=== PATIENT | male | born 1965 | race Caucasian/White ===

== ENCOUNTER 2017-07-10 08:26 | Emergency (ER) | payer BC ==
[~2017-07-10] VITALS: Ht 182.9 cm; Wt 119.0 kg
[~2017-07-10 08:26] MED LIST: AMOX500T PO; IBUP1TAB7 PO; LORT5TAB PO; TRAM50 PO; Z.0.NO CURRENT MEDS
[2017-07-10 08:29] VITALS: BP 171/90; PULSE 65; RESP 16; TEMP 97.6; O2SAT 98
[2017-07-10] MEDS ORDERED: IBUP200C PO (09:15)
[2017-07-10 09:29] LABS: AUTOMATED NEUTROPHIL # 3.4 TH/MM3 (1.8-7.7); BASOPHIL # 0.1 TH/MM3 (0-0.2); BASOPHIL % 1.2 % (0.0-2.0); EOSINOPHIL # 0.1 TH/MM3 (0-0.4); HEMATOCRIT 39.4 % (39.0-51.0); HEMOGLOBIN 13.3 GM/DL (13.0-17.0); LYMPHOCYTE # 1.6 TH/MM3 (1.0-4.8); MEAN CELL VOLUME 83.6 FL (80.0-100.0); MEAN CORPUSCULAR HEMOGLOBIN 28.2 PG (27.0-34.0); MEAN CORPUSCULAR HGB CONC 33.7 % (32.0-36.0); MEAN PLATELET VOLUME 7.4 FL (7.0-11.0); MONO % 6.9 % (0.0-8.0); MONOCYTE # 0.4 TH/MM3 (0-0.9); NEUT % 61.9 % (16.0-70.0); PLATELET COUNT 198 TH/MM3 (150-450); RED BLOOD COUNT 4.71 MIL/MM3 (4.50-5.90); RED CELL DISTRIBUTION WIDTH 14.1 % (11.6-17.2); WHITE BLOOD COUNT 5.6 TH/MM3 (4.0-11.0)
[2017-07-10 09:54] LABS: ALBUMIN 3.4 GM/DL (3.4-5.0); BICARBONATE 27.2 MEQ/L (21.0-32.0); CALCIUM 8.5 MG/DL (8.5-10.1); GLUCOSE,RANDOM 94 MG/DL (74-106)
[2017-07-10 09:58] LABS: ALT (GPT) 22 U/L (12-78); GLOMERULAR FILTRATION RATE 88 ML/MIN (>89)
[2017-07-10 09:59] LABS: TOTAL BILIRUBIN ADULT 0.6 MG/DL (0.2-1.0); TOTAL PROTEIN 7.3 GM/DL (6.4-8.2)
[2017-07-10 10:00] LABS: ALKALINE PHOSPHATASE 74 U/L (45-117)
[2017-07-10 10:02] LABS: CHLORIDE 111 MEQ/L (98-107); SODIUM (NA) 144 MEQ/L (136-145)
[2017-07-10 10:06] LABS: AST (GOT) 20 U/L (15-37)
[2017-07-10 10:09] LABS: BLOOD UREA NITROGEN 16 MG/DL (7-18)
[2017-07-10 10:16] LABS: BILIRUBIN, URINE NEG (NEG); BLOOD, URINE TRACE (NEG); GLUCOSE,URINE NEG (NEG); KETONE, URINE NEG (NEG); NITRITE,URINE NEG (NEG); URINE COLOR YELLOW (YELLW/STRAW); URINE LEUKOCYTE ESTERASE NEG (NEG)
[2017-07-10 10:30] LABS: RBC, URINE 0-3 /hpf (0-3); SQUAMOUS EPITHELIAL CELL URINE 0-5 /hpf (0-5); WBC, URINE 0-2 /hpf (0-5)
[2017-07-10 10:39] VITALS: BP 131/87; PULSE 65; RESP 18; O2SAT 98
[2017-07-10] MEDS ORDERED: HYDR25TA5 PO (10:49)
[2017-07-10] MEDS ORDERED: POTA1TAB77 PO (10:49)
--- NOTE | 2017-07-10 10:49 | PD ---
HPI Chief Complaint: Edema Time Seen by Provider: 09:07 Travel History International Travel<30 days: No Contact w/Intl Traveler<30days: No Traveled to known affect area: No History of Present Illness HPI This 52-year-old male is complaining of bilateral foot swelling. He has had mild trouble like this before. Is more prominent than usual right now. He has no history of kidney disease or liver disease. He has no history of heart disease. He has not been short of breath. He is on no medication. He has not had fever or chills PFSH Past Medical History Medical History: Denies Significant Hx Diminished Hearing: No Influenza Vaccination: No ?: Not Past Surgical History Surgical History: No Previous Surgery Social History Alcohol Use: No Tobacco Use: No Substance Use: No Allergies-Medications (Allergen,Severity, Reaction): Coded Allergies: No Known Allergies (Verified , 05/01/16) Reported Meds & Prescriptions Reported Meds & Active Scripts Active Reported Ibuprofen 200 Mg Cap 200 Mg PO Q6H PRN Review of Systems General / Constitutional: No: Fever, Chills Eyes: No: Diploplia, Blurred Vision HENT: No: Headaches, Vertigo Cardiovascular: Positive: Edema, No: Palpitations Respiratory: No: Cough, Shortness of Breath Gastrointestinal: No: Nausea, Vomiting Genitourinary: No: Urgency, Frequency Musculoskeletal: No: Myalgias, Pain Skin: No Rash Endocrine: No: Heat Intolerance, Cold Intolerance Hematologic/Lymphatic: No: Easy Bruising Physical Exam Narrative GENERAL: Well-developed male SKIN: Focused skin assessment warm/dry. HEAD: Atraumatic. Normocephalic. EYES: Pupils equal and round. No scleral icterus. No injection or drainage. ENT: No nasal bleeding or discharge. Mucous membranes pink and moist. NECK: Trachea midline. No JVD. CARDIOVASCULAR: Regular rate and rhythm. No murmur appreciated. RESPIRATORY: No accessory muscle use. Clear to auscultation. Breath sounds equal bilaterally. GASTROINTESTINAL: Abdomen soft, non-tender, nondistended. Hepatic and splenic margins not palpable. MUSCULOSKELETAL: No obvious deformities. No clubbing. No cyanosis. Bilateral pedal edema. No calf tenderness NEUROLOGICAL: Awake and alert. No obvious cranial nerve deficits. Motor grossly within normal limits. Normal speech. PSYCHIATRIC: Appropriate mood and affect; insight and judgment normal. Data Data Last Documented VS Vital Signs Date Time Temp Pulse Resp B/P (MAP) Pulse Ox O2 Delivery O2 Flow Rate FiO2 07/10/17 10:39 65 18 131/87 (102) 98 07/10/17 08:29 97.6 Room Air Orders Orders Complete Blood Count With Diff (07/10/17 09:15) Comprehensive Metabolic Panel (07/10/17 09:15) B-Type Natriuretic Peptide (07/10/17 09:15) Urinalysis - C+S If Indicated (07/10/17 09:15) Labs Laboratory Tests Test 07/10/17 09:20 07/10/17 10:00 White Blood Count 5.6 TH/MM3 Red Blood Count 4.71 MIL/MM3 Hemoglobin 13.3 GM/DL Hematocrit 39.4 % Mean Corpuscular Volume 83.6 FL Mean Corpuscular Hemoglobin 28.2 PG Mean Corpuscular Hemoglobin Concent 33.7 % Red Cell Distribution Width 14.1 % Platelet Count 198 TH/MM3 Mean Platelet Volume 7.4 FL Neutrophils (%) (Auto) 61.9 % Lymphocytes (%) (Auto) 28.0 % Monocytes (%) (Auto) 6.9 % Eosinophils (%) (Auto) 2.0 % Basophils (%) (Auto) 1.2 % Neutrophils # (Auto) 3.4 TH/MM3 Lymphocytes # (Auto) 1.6 TH/MM3 Monocytes # (Auto) 0.4 TH/MM3 Eosinophils # (Auto) 0.1 TH/MM3 Basophils # (Auto) 0.1 TH/MM3 CBC Comment DIFF FINAL Differential Comment Blood Urea Nitrogen 16 MG/DL Creatinine 0.90 MG/DL Random Glucose 94 MG/DL Total Protein 7.3 GM/DL Albumin 3.4 GM/DL Calcium Level 8.5 MG/DL Alkaline Phosphatase 74 U/L Aspartate Amino Transf (AST/SGOT) 20 U/L Alanine Aminotransferase (ALT/SGPT) 22 U/L Total Bilirubin 0.6 MG/DL Sodium Level 144 MEQ/L Potassium Level 4.0 MEQ/L Chloride Level 111 MEQ/L Carbon Dioxide Level 27.2 MEQ/L Anion Gap 6 MEQ/L Estimat Glomerular Filtration Rate 88 ML/MIN B-Type Natriuretic Peptide 29 PG/ML Urine Collection Type CLEAN CATCH Urine Color YELLOW Urine Turbidity CLEAR Urine pH 6.0 Urine Specific [place] 1.025 Urine Protein NEG mg/dL Urine Glucose (UA) NEG mg/dL Urine Ketones NEG mg/dL Urine Occult Blood TRACE Urine Nitrite NEG Urine Bilirubin NEG Urine Urobilinogen 0.2 MG/DL Urine Leukocyte Esterase NEG Urine RBC 0-3 /hpf Urine WBC 0-2 /hpf Urine Squamous Epithelial Cells 0-5 /hpf Microscopic Urinalysis Comment CULT NOT INDICATED Urine Collection Time 10:00 [facility] Medical Decision Making Medical Screen Exam Complete: Yes Emergency Medical Condition: Yes Medical Record Reviewed: Yes Differential Diagnosis Differential includes congestive heart failure, nephrotic syndrome, cirrhosis, Narrative Course BNP is normal. Kidney function is normal. Albumin slightly low at 3.4. Patient did have elevated blood pressure on arrival. I am going to put him on hydrochlorothiazide 25 daily Diagnosis Primary Impression: Peripheral edema Scripts Potassium Chloride ER (K-Tab) 8 Meq Tab 8 MEQ PO DAILY for Electrolyte Replacement, #30 TAB 0 Refills Prov: West Simpson MD 07/10/17 Hydrochlorothiazide (Hydrochlorothiazide) 25 Mg Tab 25 MG PO DAILY, #30 TAB 0 Refills Prov: West Simpson MD 07/10/17 Disposition: 01 DISCHARGE HOME Condition: Stable West Simpson MD Jul 10, 2017 10:49
== END 2017-07-10 11:03 | disposition home or self-care (01) ==
LOC: PHED 08:26
DX: R60.0 Localized edema (principal)
CPT/HCPCS: 80053; 81001; 83880; 85025; 99283